=== PATIENT | female | born 1985 | race Caucasian/White ===

== ENCOUNTER 2016-05-15 20:31 | Emergency (ER) | payer OTHER ==
[~2016-05-15] VITALS: Ht 172.7 cm; Wt 98.2 kg
[~2016-05-15 20:31] MED LIST: ADVAIR 100/501 DISK IH; ADVAIR 250/501 DISK IH; ASACOL HD800 MG PO; ATROVENT 0.06%15 ML BOTH NARES; Atrovent 0.06% Nasal BOTH NARES; BENTYL20 MG PO; BIRTH CONTROL; BROMIDE IH; Bentyl PO; Berocca Plus PO; Claritin,Alavart PO; DAILY VALUE1 EACH PO; DELTASONE50 MG PO; DUONEB 2.5-0.5 M3 ML IH; Effexor XR PO; FLOVENT 22120 INHALA IH; Glucophage PO; JUNEL FE 1.5-31 EACH PO; JUNEL FE 1/21 TABLET PO; K-Dur PO; KLOR-CON M2020 MEQ PO; LASIX40 MG PO; LEVEMIR100 UNIT/2 SC; LIPITOR20 MG PO; Lasix PO; METFORMIN HCL1000 M1 PO; METFORMIN HCL500 MG PO; MOBIC7.5 MG PO; MOTRIN600 MG PO; NEURONTIN600 MG PO; OXYCODONE HCL5 MG PO; PREDNISONE10 MG PO; PREVACID30 MG PO; PRILOSEC20 MG PO; PRILOSEC40 MG PO; PROAIR HFA8.5 GM IH; PROZAC20 MG PO; PROzac PO; Prevacid PO; ROBITUSSIN W/CODEINE PO; Reglan PO; Robitussin AC,Tussi- PO; SEREVENT DISKU50 MCG IH; SIMVASTATIN40 MG PO; SINGULAIR10 MG PO; Singulair PO; TIROSINT100 MCG PO; TRAMADOL HCL50 MG PO; TRI-SPRINTEC1 EACH PO; TROKENDI XR25 MG PO; Theragran PO; Tylenol Regular Stre PO; ULTRAM50 MG PO; Ultram PO; VICTOZA 2-0.6 MG/0.1 SC; Victoza SC; Vitamin-E PO; ZOFRAN ODT4 MG PO; ZOFRAN4 MG PO; [UNRECOGNIZED DRUG - OTHER] IH; predniSONE PO
[2016-05-15 21:53] LABS: HEMATOCRIT 40.5 % (36.0-46.0); MCH 28.5 PG (29.0-34.0); MCHC 35.6 G/DL (30.0-36.0); MCV 80.2 FL (83-99); MEAN PLAT.VOLUME 11.2 uM^3 (9.5-12.4); PLATELET COUNT 256 K/uL (156-360); RBC DIS.WIDTH-CV 12.8 % (11.8-14.6); RBC DIS.WIDTH-SD 36.5 % (39-53); RED BLOOD COUNT 5.05 M/uL (3.80-5.20); WHITE BLOOD COUNT 8.6 K/uL (4.1-10.2)
[2016-05-15 22:05] LABS: D-DIMER ELISA 0.25 mg/L FEU (< 0.57)
[2016-05-15 22:06] LABS: CHLORIDE 107 mEq/L (99-109); POTASSIUM 4.1 mEq/L (3.7-5.4); SODIUM 139 mEq/L (136-147)
[2016-05-15 22:08] LABS: GLUCOSE 204 mg/dL (70-99)
[2016-05-15 22:09] LABS: ANION GAP 14 MEQ/L (2-14)
[2016-05-15 22:12] LABS: GFR ESTIMATE (CALCULATED) > 59 mL/min/
[2016-05-15 22:13] LABS: TROP-I INTERPRETATION NEGATIVE; TROPONIN-I < 0.01 ng/mL (0.0-0.30); UREA NITROGEN (BUN) 16 mg/dL (9-23)
[2016-05-15 22:20] LABS: QUANTITATIVE HCG < 4.0 MIU/ML
[2016-05-15] MEDS ORDERED: ROBITUSSIN AC,T10 ML PO (22:54)
[2016-05-15 23:20] VITALS: BP 124/72
== END 2016-05-15 23:35 | disposition home or self-care (01) ==
LOC: EME 20:31
PROVIDERS: Physician Assistant
DX: J45.31 Mild persistent asthma with (acute) exacerbation (principal); R07.9 Chest pain, unspecified; R00.0 Tachycardia, unspecified; E11.9 Type 2 diabetes mellitus without complications; Z79.52 Long term (current) use of systemic steroids
CPT/HCPCS: 71020; 80048; 84484; 84702; 85027; 85379; 93005; 94640; 99281; 99284; J1885; J7030

== ENCOUNTER 2016-05-17 11:19 | Emergency (ER) | payer OTHER ==
[~2016-05-17] VITALS: Ht 172.7 cm; Wt 95.8 kg
[~2016-05-17 11:19] MED LIST changes: +ROBITUSSIN AC,T10 ML PO
[2016-05-17 12:08] LABS: HEMATOCRIT 40.6 % (36.0-46.0); MCH 28.4 PG (29.0-34.0); MCHC 34.5 G/DL (30.0-36.0); MCV 82.4 FL (83-99); MEAN PLAT.VOLUME 11.2 uM^3 (9.5-12.4); PLATELET COUNT 246 K/uL (156-360); RBC DIS.WIDTH-CV 13.4 % (11.8-14.6); RBC DIS.WIDTH-SD 39.3 % (39-53); RED BLOOD COUNT 4.93 M/uL (3.80-5.20); WHITE BLOOD COUNT 8.1 K/uL (4.1-10.2)
[2016-05-17 12:20] LABS: CHLORIDE 106 mEq/L (99-109); SODIUM 141 mEq/L (136-147)
[2016-05-17 12:22] LABS: GLUCOSE 123 mg/dL (70-99)
[2016-05-17 12:23] LABS: ANION GAP 15 MEQ/L (2-14)
[2016-05-17 12:26] LABS: GFR ESTIMATE (CALCULATED) > 59 mL/min/; UREA NITROGEN (BUN) 14 mg/dL (9-23)
[2016-05-17 12:50] LABS: QUANTITATIVE HCG < 4.0 MIU/ML
[2016-05-17 13:11] LABS: BILIRUBIN NEGATIVE; BLOOD NEGATIVE; COLOR YELLOW ((YELLOW)); GLUCOSE (STRIP) NEGATIVE; KETONES NEGATIVE; LEUKOCYTES NEGATIVE; NITRITE NEGATIVE; PROTEIN (STRIP) NEGATIVE; SPECIFIC GRAVITY 1.013 (1.000-1.030)
[2016-05-17 13:15] LABS: ADD MIUA? NO; UCUL ADDED? NO
[2016-05-17 16:11] LABS: INFLUENZA A VIRAL ANTIGEN ND; INFLUENZA B VIRAL ANTIGEN ND
[2016-05-17 17:25] LABS: INFLUENZA A VIRAL ANTIGEN POSITIVE; INFLUENZA B VIRAL ANTIGEN NEGATIVE
[2016-05-17 17:45] VITALS: BP 114/58
== END 2016-05-17 17:46 | disposition home or self-care (01) ==
LOC: EME 11:19 → RME 11:19
PROVIDERS: Nurse Practitioner Family; Physician Assistant
DX: J10.1 Influenza due to other identified influenza virus with other respiratory manifestations (principal); R10.9 Unspecified abdominal pain; J45.909 Unspecified asthma, uncomplicated; E11.9 Type 2 diabetes mellitus without complications; Z79.52 Long term (current) use of systemic steroids
CPT/HCPCS: 71020; 74177; 80048; 81003; 84702; 85027; 87502; 99281; 99285; J1885; J7120

== ENCOUNTER 2017-05-23 13:04 | Emergency (ER) | payer OTHER ==
[~2017-05-23] VITALS: Ht 172.7 cm; Wt 105.1 kg
[2017-05-23] MEDS ORDERED: MOTRIN600 MG PO (14:15)
[2017-05-23] MEDS ORDERED: FLEXERIL10 MG PO (14:15)
[2017-05-23 14:25] VITALS: BP 168/88
== END 2017-05-23 14:27 | disposition home or self-care (01) ==
LOC: EME 13:04
DX: S09.90XA Unspecified injury of head, initial encounter (principal); K21.9 Gastro-esophageal reflux disease without esophagitis; E11.9 Type 2 diabetes mellitus without complications; J45.909 Unspecified asthma, uncomplicated; K52.9 Noninfective gastroenteritis and colitis, unspecified; F41.9 Anxiety disorder, unspecified; F32.9 Major depressive disorder, single episode, unspecified; W22.8XXA Striking against or struck by other objects, initial encounter; Y99.0 Civilian activity done for income or pay; Z79.84 Long term (current) use of oral hypoglycemic drugs; Z87.19 Personal history of other diseases of the digestive system; Z96.22 Myringotomy tube(s) status; Z88.0 Allergy status to penicillin; Z88.6 Allergy status to analgesic agent; Z88.7 Allergy status to serum and vaccine
CPT/HCPCS: 99281; 99284